=== PATIENT | female | born 1995 | race Caucasian/White ===

== ENCOUNTER 2017-10-10 11:57 | Emergency (ER) | payer OTHER ==
--- NOTE | 2017-10-10 13:16 | EDM.PDOC ---
ED HPI GENERAL MEDICAL PROBLEM - General Chief Complaint: Abdominal Pain Stated Complaint: NOT FEELING WELL Time Seen by Provider: 10/10/17 12:45 Source of Information: Reports: Patient History Limitations: Reports: No Limitations - History of Present Illness INITIAL COMMENTS - FREE TEXT/NARRATIVE: HISTORY AND PHYSICAL: History of present illness: [Patient comes to the emergency room complaining of right lower quadrant abdominal pain. Symptoms began around 8 PM last evening and have continued throughout today. She has not had any fever or chills. No nausea or vomiting with the abdominal pain. [place] the pain came on gradually and intensified throughout the night. She had difficulty sleeping due to the pain but admits to sleeping some. She woke up today and the pain is improved but still remains present. She has recently been well, no illness or infection. Denies fever and chills. Has not felt constipated and is not having loose stools. No vomiting. Admits to normally having a decreased appetite and has not had any changes with this. Had a bowel movement yesterday. No rectal pain or bleeding. No burning with urination or blood in her urine. Denies low back pain. No vaginal discharge. Abnormal Pap 6 months ago. Follows regularly with her PCP for this. No surgical history other than tonsillectomy as a young child. Denies hospitalizations. Has a history of depression and anxiety for which she takes Pristiq. Does not use contraception and is sexually active. Smokes cigarettes regularly. Occasional alcohol use. Denies drug use.] Review of systems: As per history of present illness and below otherwise all systems reviewed and negative. Past medical history: As per history of present illness and as reviewed below otherwise noncontributory. Surgical history: As per history of present illness and as reviewed below otherwise noncontributory. Social history: No reported history of drug or alcohol abuse. Family history: As per history of present illness and as reviewed below otherwise noncontributory. Physical exam: HEENT: Atraumatic, normocephalic. oral mucous membranes are pink and moist. no tonsillar swelling erythema or exudate. Neck is supple. No thyromegaly or lymphadenopathy. Lungs: Clear to auscultation, breath sounds equal bilaterally. Heart: S1S2, regular rate and rhythm. Abdomen: Bowel sounds are normoactive throughout. Her abdomen is thin and soft, nondistended. She is mildly tender with palpation over her right lower quadrant. No rebound. Suprapubic tenderness. No masses guarding or rebound. No CVA tenderness. Pelvis: Stable nontender. Genitourinary: Deferred. Rectal: Deferred. Extremities: Atraumatic, negative for cords or calf pain. No cyanosis. Neurovascular unremarkable. Neuro: Awake, alert, oriented. Motor and sensory unremarkable throughout. Exam nonfocal. Diagnostics: [CBC, CMP, urinalysis, urine , non-OB pelvic ultrasound] Impression: [abdominal pain, RLQ] Plan: [Discussed with patient that due to her lack of fever and normal white count, index of suspicion is low or appendicitis. Discussed symptoms to watch for and reasons to return to the ER. Pelvic ultrasound showed no abnormalities. Recommend Tylenol alternating with ibuprofen as needed for discomfort. Heating pads as needed. Offered Toradol which patient declines, stating she would like to go home. Strict return precautions are reviewed. Pt and mother are in agreement with today's discussion.] Definitive disposition and diagnosis as appropriate pending reevaluation and review of above. right lower quadrant pain Pain Score (Numeric/FACES): 6 - Related Data Allergies Allergy/AdvReac Type Severity Reaction Status Date / Time Penicillins Allergy Hives Verified 10/10/17 12:18 Home Meds: Home Meds Topiramate [Topamax] 50 mg PO BID 10/10/17 [History] Past Medical History Psychiatric History: Reports: Bipolar - Infectious Disease History Infectious Disease History: Reports: Chicken Pox Social & Family History - Family History Family Medical History: Noncontributory - Tobacco Use Smoking Status *Q: Current Every Day Smoker Years of Tobacco use: 10 Packs/Tins Daily: 0.5 - Recreational Drug Use Recreational Drug Use: Yes Drug Use in Last 12 Months: Yes Recreational Drug Type: Reports: Marijuana/Hashish Recreational Drug Use Frequency: Weekly ED ROS GENERAL - Review of Systems Review Of Systems: ROS reveals no pertinent complaints other than HPI. ED EXAM, GI/ABD - Physical Exam Exam: See Below Course - Vital Signs Last Recorded V/S: Last Vital Signs Temp 98.3 F 10/10/17 12:19 Pulse 84 10/10/17 12:19 Resp 18 10/10/17 12:19 BP 128/76 10/10/17 12:19 Pulse Ox 97 10/10/17 12:19 - Orders/Labs/Meds Orders: Active Orders 24 hr Category Date Time Status HCG QUALITATIVE,URINE [URCHEM] Stat Lab 10/10/17 12:50 Ordered UA W/MICROSCOPIC [URIN] Stat Lab 10/10/17 12:50 Ordered Labs: Laboratory Tests 10/10/17 10/10/17 10/10/17 Range/Units 12:50 12:50 12:56 WBC 6.96 (4.0-11.0) K/uL RBC 4.01 L (4.30-5.90) M/uL Hgb 13.0 (12.0-16.0) g/dL Hct 36.0 (36.0-46.0) % MCV 89.8 (80.0-98.0) fL MCH 32.4 H (27.0-32.0) pg MCHC 36.1 (31.0-37.0) g/dL RDW Std Deviation 41.3 (28.0-62.0) fl RDW Coeff of [place] 13 (11.0-15.0) % Plt Count 201 (150-400) K/uL MPV 10.60 (7.40-12.00) fL Neut % (Auto) 60.5 (48.0-80.0) % Lymph % (Auto) 31.3 (16.0-40.0) % [place] % (Auto) 8.2 (0.0-15.0) % Eos % (Auto) 0.0 (0.0-7.0) % Baso % (Auto) 0.0 (0.0-1.5) % Neut # (Auto) 4.2 (1.4-5.7) K/uL Lymph # (Auto) 2.2 (0.6-2.4) K/uL [place] # (Auto) 0.6 (0.0-0.8) K/uL Eos # (Auto) 0.0 (0.0-0.7) K/uL Baso # (Auto) 0.0 (0.0-0.1) K/uL Nucleated RBC % 0.0 /100WBC Nucleated RBCs # 0 K/uL Sodium (136-145) mmol/L Potassium (3.5-5.1) mmol/L Chloride (98-107) mmol/L Carbon Dioxide (21.0-32.0) mmol/L BUN (7.0-18.0) mg/dL Creatinine (0.6-1.0) mg/dL Est Cr Clr Drug Dosing mL/min Estimated GFR (MDRD) ml/min Glucose (74-106) mg/dL Calcium (8.5-10.1) mg/dL Total Bilirubin (0.2-1.0) mg/dL AST (15-37) IU/L ALT (14-63) IU/L Alkaline Phosphatase (46-116) U/L Total Protein (6.4-8.2) g/dL Albumin (3.4-5.0) g/dL Globulin (2.0-3.5) g/dL Albumin/Globulin Ratio (1.3-2.8) Urine Color YELLOW Urine Appearance CLEAR Urine pH 6.5 (5.0-8.0) Ur Specific [place] 1.010 (1.001-1.035) Urine Protein NEGATIVE (NEGATIVE) mg/dL Urine Glucose (UA) NEGATIVE (NEGATIVE) mg/dL Urine Ketones NEGATIVE (NEGATIVE) mg/dL Urine Occult Blood NEGATIVE (NEGATIVE) Urine Nitrite NEGATIVE (NEGATIVE) Urine Bilirubin NEGATIVE (NEGATIVE) Urine Urobilinogen 0.2 (<2.0) EU/dL Ur Leukocyte Esterase NEGATIVE (NEGATIVE) Urine RBC 0-1 (0-2/HPF) Urine WBC 0-1 (0-5/HPF) Ur Epithelial Cells RARE (NONE-FEW) Urine Bacteria RARE (NEGATIVE) Urine HCG, Qual NEGATIVE (NEGATIVE) 10/10/17 Range/Units 12:56 WBC (4.0-11.0) K/uL RBC (4.30-5.90) M/uL Hgb (12.0-16.0) g/dL Hct (36.0-46.0) % MCV (80.0-98.0) fL MCH (27.0-32.0) pg MCHC (31.0-37.0) g/dL RDW Std Deviation (28.0-62.0) fl RDW Coeff of [place] (11.0-15.0) % Plt Count (150-400) K/uL MPV (7.40-12.00) fL Neut % (Auto) (48.0-80.0) % Lymph % (Auto) (16.0-40.0) % [place] % (Auto) (0.0-15.0) % Eos % (Auto) (0.0-7.0) % Baso % (Auto) (0.0-1.5) % Neut # (Auto) (1.4-5.7) K/uL Lymph # (Auto) (0.6-2.4) K/uL [place] # (Auto) (0.0-0.8) K/uL Eos # (Auto) (0.0-0.7) K/uL Baso # (Auto) (0.0-0.1) K/uL Nucleated RBC % /100WBC Nucleated RBCs # K/uL Sodium 138 (136-145) mmol/L Potassium 3.3 L (3.5-5.1) mmol/L Chloride 105 (98-107) mmol/L Carbon Dioxide 22.1 (21.0-32.0) mmol/L BUN 12 (7.0-18.0) mg/dL Creatinine 1.0 (0.6-1.0) mg/dL Est Cr Clr Drug Dosing 66.59 mL/min Estimated GFR (MDRD) > 60.0 ml/min Glucose 87 (74-106) mg/dL Calcium 9.2 (8.5-10.1) mg/dL Total Bilirubin 0.7 (0.2-1.0) mg/dL AST 12 L (15-37) IU/L ALT 18 (14-63) IU/L Alkaline Phosphatase 69 (46-116) U/L Total Protein 7.2 (6.4-8.2) g/dL Albumin 4.1 (3.4-5.0) g/dL Globulin 3.1 (2.0-3.5) g/dL Albumin/Globulin Ratio 1.3 (1.3-2.8) Urine Color Urine Appearance Urine pH (5.0-8.0) Ur Specific [place] (1.001-1.035) Urine Protein (NEGATIVE) mg/dL Urine Glucose (UA) (NEGATIVE) mg/dL Urine Ketones (NEGATIVE) mg/dL Urine Occult Blood (NEGATIVE) Urine Nitrite (NEGATIVE) Urine Bilirubin (NEGATIVE) Urine Urobilinogen (<2.0) EU/dL Ur Leukocyte Esterase (NEGATIVE) Urine RBC (0-2/HPF) Urine WBC (0-5/HPF) Ur Epithelial Cells (NONE-FEW) Urine Bacteria (NEGATIVE) Urine HCG, Qual (NEGATIVE) Departure - Departure Time of Disposition: 15:10 Disposition: Home, Self-Care 01 Condition: Good Clinical Impression: Abdominal pain - Discharge Information Referrals: PCP,None [Primary Care Provider] - Forms: ED Department Discharge Additional Instructions: The following information is given to patients seen in the emergency department who are being discharged to home. This information is to outline your options for follow-up care. We provide all patients seen in our emergency department with a follow-up referral. The need for follow-up, as well as the timing and circumstances, are variable depending upon the specifics of your emergency department visit. If you don't have a primary care physician on staff, we will provide you with a referral. We always advise you to contact your personal physician following an emergency department visit to inform them of the circumstance of the visit and for follow-up with them and/or the need for any referrals to a consulting specialist. The emergency department will also refer you to a specialist when appropriate. This referral assures that you have the opportunity for follow-up care with a specialist. All of these measure are taken in an effort to provide you with optimal care, which includes your follow-up. Under all circumstances we always encourage you to contact your private physician who remains a resource for coordinating your care. When calling for follow-up care, please make the office aware that this follow-up is from your recent emergency room visit. If for any reason you are refused follow-up, please contact the [facility] emergency department at and asked to speak to the emergency department charge nurse. [facility] [address] [place] [id number] Follow-up with your local primary care provider at the clinic listed above in 48 -72 hours. Alternate Tylenol with ibuprofen as needed. Use heating pad as needed. Return to ER as needed as discussed. - My Orders Last 24 Hours: My Active Orders 10/10/17 12:50 HCG QUALITATIVE,URINE [URCHEM] Stat UA W/MICROSCOPIC [URIN] Stat - Assessment/Plan Last 24 Hours: My Active Orders 10/10/17 12:50 HCG QUALITATIVE,URINE [URCHEM] Stat UA W/MICROSCOPIC [URIN] Stat
[2017-10-10 13:46] LABS: CHLORIDE,CL 105 mmol/L (98-107); SODIUM,NA 138 mmol/L (136-145)
--- NOTE | 2017-10-10 14:55 | US ---
Pelvic/transvaginal sonogram Multiple images through the uterus and adnexa demonstrate that the uterus measures 6.3 x 2.7 x 3.4 cm . Ovaries are morphologically normal in size greatest dimension on the right at 3.45 cm and greatest dimension on the left at 3.12 cm. Small follicles are present bilaterally. There is no pelvic fluid c ollection or mass. The endometrial stripe within the uterus is normal. Impression: No significant pelvic abnormalities
== END 2017-10-10 15:30 | disposition home or self-care (01) ==
LOC: MW.ED 11:57
DX: R10.31 Right lower quadrant pain (principal); Z88.0 Allergy status to penicillin; F17.210 Nicotine dependence, cigarettes, uncomplicated
CPT/HCPCS: 36415; 76856; 76856-26; 80053; 81001; 81025; 85025; 99284-25

== ENCOUNTER 2018-07-09 16:41 | Emergency (ER) | payer OTHER, MEDICAID ==
[2018-07-09] MEDS ORDERED: Sodium Chloride 0.9% 1,000 ML IV ONE (16:57)
--- NOTE | 2018-07-09 16:57 | EDM.PDOC ---
ED HPI GENERAL MEDICAL PROBLEM - General Chief Complaint: Respiratory Problem Stated Complaint: CHEST PAIN Time Seen by Provider: 07/09/18 16:43 Source of Information: Reports: Patient History Limitations: Reports: No Limitations - History of Present Illness INITIAL COMMENTS - FREE TEXT/NARRATIVE: HISTORY AND PHYSICAL: History of present illness: Patient is a 22-year-old female who presents to the ED today for pleuritic chest pain (worse with deep breath) that started about one hour ago. She is approximately 33 weeks gestation in her . Patient states that 1 hour ago she started having a sharp pain in her chest that is worse if she takes a big deep breath. She rates her pain a 9 out of 10 with deep breath. She states that when this happened she called [facility] and spoke with the on-call doc (Dr. Jesse Traylor) who told her to come to the ED. Her primary physician is Dr. Stanley. Patient states she does feel as if her heart is racing. She states she has not been sick recently. She states and her pregnancies she has had on 2 separate occasions situations where she went into premature labor that stopped this medication on labor and delivery. Patient states she has felt movement since the symptoms. Patient denies any difference in swelling in her legs. Patient denies any headache, visual changes, shortness of breath, cough, nausea , vomiting, abdominal pain, vaginal bleeding, pelvic pain, vaginal discharge, nasal congestion, back pain, injury, or all other GI, , cardiovascular, or respiratory concerns. Patient does have a history of anxiety and depression but denies any other health history. Review of systems: As per history of present illness and below otherwise all systems reviewed and negative. Past medical history: As per history of present illness and as reviewed below otherwise noncontributory. Surgical history: As per history of present illness and as reviewed below otherwise noncontributory. Social history: See social history for further information Family history: As per history of present illness and as reviewed below otherwise noncontributory. Physical exam: General: Patient is alert, oriented, and in no acute distress. She is sitting comfortable on exam table. HEENT: Atraumatic, normocephalic, pupils equal and reactive bilaterally, negative for conjunctival pallor or scleral icterus, mucous membranes moist, TMs normal bilaterally, throat clear, neck supple, nontender, trachea midline. No drooling or trismus noted. No meningeal signs. No hot potato voice noted. Lungs: Clear to auscultation, breath sounds equal bilaterally, chest nontender. Patient notes pain when asked to take a deep breath in. Heart: S1S2, regular rate and rhythm without overt murmur Abdomen: Gravid, soft, nondistended, nontender. Negative for masses or hepatosplenomegaly. Negative for costovertebral tenderness. Pelvis: Stable nontender. Genitourinary: Deferred. Rectal: Deferred. Skin: Intact, warm, dry. No lesions or rashes noted. Extremities: Atraumatic, negative for cords or calf pain. Neurovascular unremarkable. Neuro: Awake, alert, oriented. Cranial nerves II through XII unremarkable. Cerebellum unremarkable. Motor and sensory unremarkable throughout. Exam nonfocal. Notes: OB was called to perform NST at bedside. Patient denies any vaginal bleeding, discharge or any OB-related concerns at this time. She is agreeable to IV fluid and lab work. Once labs have resulted and able to reevaluate the patient we will consider doing a CTA of the chest to rule out PE if needed. Although she is tachycardic she has not tachypneic. Lab work is unremarkable. After receiving a liter of IV fluids she continues to be tachycardic in the one teens. Dr. vizcarra who is [employer] on-call was consulted on this case and she is agreeable that this patient needs to be ruled out for PE. The risks versus benefits were explained to the patient, along with exposures to the fetus. Patient is agreeable to having this test performed to rule out PE. The optimal opacification of the pulmonary arteries. No large central pulmonary embolism is identified. Subcutaneous segmental branches of the pulmonary arteries cannot be adequately evaluated with this exam. There is a faint groundglass opacity in the right lower lobe which represents early or resolving infection. Patient did have an NST at bedside by AZALEA Jackson. Dr. vizcarra was involved and aware of the patient's case and recent vital signs. She is comfortable with the patient being discharged to home and having close follow-up within the remaining week with her [employer]. This information was shared with the patient. Supportive care measures were reviewed and discussed. Voices understanding and is agreeable to plan of care. Denies any further questions or concerns at this time. Diagnostics: CBC, CMP, UA, nonstress test, EKG, TSH, CTA Therapeutics: IV fluids, Tylenol, DuoNeb Prescription: None Impression: Pleuritic chest pain Third trimester Tachycardia Plan: 1. Please avoid any caffeine or stimulants that may increase her heart rate. Drink plenty of fluids. 2. Please call tomorrow morning to set up a follow-up appointment with your OB/ MEDICAL ASST. They would like to have you reevaluated before the end of the week. 3. Return to the ED as needed and as discussed. Definitive disposition and diagnosis as appropriate pending reevaluation and review of above. - Related Data Allergies Allergy/AdvReac Type Severity Reaction Status Date / Time Penicillins Allergy Hives Verified 07/09/18 17:00 Home Meds: Home Meds PNV #116/Iron Fumarate/FA/DHA [Expecta Combo Pack] 1 tab PO DAILY 06/06 [History] buPROPion [Wellbutrin SR] 150 mg PO DAILY 06/06/18 [History] Levothyroxine Sodium [Synthroid] 25 mcg PO DAILY 07/09/18 [History] Past Medical History Psychiatric History: Reports: Bipolar - Infectious Disease History Infectious Disease History: Reports: Chicken Pox Social & Family History - Family History Family Medical History: Noncontributory ED ROS GENERAL - Review of Systems Review Of Systems: ROS reveals no pertinent complaints other than HPI. ED EXAM, GENERAL - Physical Exam Exam: See Below (See dictation) Course - Vital Signs Last Recorded V/S: Last Vital Signs Temp 97.6 F 07/09/18 16:45 Pulse 99 07/09/18 18:40 Resp 18 07/09/18 18:40 BP 126/83 07/09/18 18:40 Pulse Ox 97 07/09/18 18:40 - Orders/Labs/Meds Orders: Active Orders 24 hr Category Date Time Status EKG Documentation Completion [RC] STAT Care 07/09/18 16:43 Active Non Stress Test [ Non Stress Test] [RC] PER UNIT Care 07/09/18 17:02 Active ROUTINE RT Aerosol Therapy [RC] ASDIRECTED Care 07/09/18 16:58 Active Labs: Laboratory Tests 07/09/18 07/09/18 07/09/18 Range/Units 17:28 17:28 17:28 WBC 10.89 (4.0-11.0) K/uL RBC 3.41 L (4.30-5.90) M/uL Hgb 11.5 L (12.0-16.0) g/dL Hct 32.6 L (36.0-46.0) % MCV 95.6 (80.0-98.0) fL MCH 33.7 H (27.0-32.0) pg MCHC 35.3 (31.0-37.0) g/dL RDW Std Deviation 47.8 (28.0-62.0) fl RDW Coeff of [place] 14 (11.0-15.0) % Plt Count 178 (150-400) K/uL MPV 10.60 (7.40-12.00) fL Neut % (Auto) 72.0 (48.0-80.0) % Lymph % (Auto) 17.9 (16.0-40.0) % [place] % (Auto) 7.3 (0.0-15.0) % Eos % (Auto) 2.6 (0.0-7.0) % Baso % (Auto) 0.2 (0.0-1.5) % Neut # (Auto) 7.8 H (1.4-5.7) K/uL Lymph # (Auto) 2.0 (0.6-2.4) K/uL [place] # (Auto) 0.8 (0.0-0.8) K/uL Eos # (Auto) 0.3 (0.0-0.7) K/uL Baso # (Auto) 0.0 (0.0-0.1) K/uL Nucleated RBC % 0.2 /100WBC Nucleated RBCs # 0 K/uL Sodium 137 (136-145) mmol/L Potassium 3.8 (3.5-5.1) mmol/L Chloride 104 (98-107) mmol/L Carbon Dioxide 21.1 (21.0-32.0) mmol/L BUN 6 L (7.0-18.0) mg/dL Creatinine 0.7 (0.6-1.0) mg/dL Est Cr Clr Drug Dosing 94.32 mL/min Estimated GFR (MDRD) > 60.0 ml/min Glucose 111 H (74-106) mg/dL Calcium 9.1 (8.5-10.1) mg/dL Total Bilirubin 0.3 (0.2-1.0) mg/dL AST 14 L (15-37) IU/L ALT 16 (14-63) IU/L Alkaline Phosphatase 117 H (46-116) U/L Total Protein 6.4 (6.4-8.2) g/dL Albumin 2.6 L (3.4-5.0) g/dL Globulin 3.8 (2.6-4.0) g/dL Albumin/Globulin Ratio 0.7 L (0.9-1.6) TSH 3rd Generation (0.36-3.74) uIU/mL Urine Color YELLOW Urine Appearance CLEAR Urine pH 7.0 (5.0-8.0) Ur Specific [place] <= 1.005 (1.001-1.035) Urine Protein NEGATIVE (NEGATIVE) mg/dL Urine Glucose (UA) NEGATIVE (NEGATIVE) mg/dL Urine Ketones NEGATIVE (NEGATIVE) mg/dL Urine Occult Blood NEGATIVE (NEGATIVE) Urine Nitrite NEGATIVE (NEGATIVE) Urine Bilirubin NEGATIVE (NEGATIVE) Urine Urobilinogen 0.2 (<2.0) EU/dL Ur Leukocyte Esterase NEGATIVE (NEGATIVE) 07/09/18 Range/Units 17:28 WBC (4.0-11.0) K/uL RBC (4.30-5.90) M/uL Hgb (12.0-16.0) g/dL Hct (36.0-46.0) % MCV (80.0-98.0) fL MCH (27.0-32.0) pg MCHC (31.0-37.0) g/dL RDW Std Deviation (28.0-62.0) fl RDW Coeff of [place] (11.0-15.0) % Plt Count (150-400) K/uL MPV (7.40-12.00) fL Neut % (Auto) (48.0-80.0) % Lymph % (Auto) (16.0-40.0) % [place] % (Auto) (0.0-15.0) % Eos % (Auto) (0.0-7.0) % Baso % (Auto) (0.0-1.5) % Neut # (Auto) (1.4-5.7) K/uL Lymph # (Auto) (0.6-2.4) K/uL [place] # (Auto) (0.0-0.8) K/uL Eos # (Auto) (0.0-0.7) K/uL Baso # (Auto) (0.0-0.1) K/uL Nucleated RBC % /100WBC Nucleated RBCs # K/uL Sodium (136-145) mmol/L Potassium (3.5-5.1) mmol/L Chloride (98-107) mmol/L Carbon Dioxide (21.0-32.0) mmol/L BUN (7.0-18.0) mg/dL Creatinine (0.6-1.0) mg/dL Est Cr Clr Drug Dosing mL/min Estimated GFR (MDRD) ml/min Glucose (74-106) mg/dL Calcium (8.5-10.1) mg/dL Total Bilirubin (0.2-1.0) mg/dL AST (15-37) IU/L ALT (14-63) IU/L Alkaline Phosphatase (46-116) U/L Total Protein (6.4-8.2) g/dL Albumin (3.4-5.0) g/dL Globulin (2.6-4.0) g/dL Albumin/Globulin Ratio (0.9-1.6) TSH 3rd Generation 2.31 (0.36-3.74) uIU/mL Urine Color Urine Appearance Urine pH (5.0-8.0) Ur Specific [place] (1.001-1.035) Urine Protein (NEGATIVE) mg/dL Urine Glucose (UA) (NEGATIVE) mg/dL Urine Ketones (NEGATIVE) mg/dL Urine Occult Blood (NEGATIVE) Urine Nitrite (NEGATIVE) Urine Bilirubin (NEGATIVE) Urine Urobilinogen (<2.0) EU/dL Ur Leukocyte Esterase (NEGATIVE) Meds: Medications Discontinued Medications Generic Name Dose Route Start Last Admin Trade Name Freq PRN Reason Stop Dose Admin Acetaminophen 650 mg 07/09/18 16:58 07/09/18 17:54 Tylenol PO 07/09/18 16:59 650 mg NOW ONE Administration Albuterol/Ipratropium 3 ml 07/09/18 16:58 07/09/18 17:19 Duoneb 3.0-0.5 Mg/3 Ml NEB 07/09/18 16:59 3 ml ONETIME ONE Administration Sodium Chloride 1,000 mls @ 999 mls/hr 07/09/18 16:57 07/09/18 17:26 Normal Saline IV 07/09/18 17:57 999 mls/hr STAT ONE Administration Iopamidol 50 ml 07/09/18 19:13 07/09/18 19:14 Isovue Multipack-370 (76%) IVPUSH 07/09/18 19:14 50 ml ONETIME STA Administration Departure - Departure Time of Disposition: 19:38 Disposition: Home, Self-Care 01 Clinical Impression: Pleuritic chest pain, Third trimester , Tachycardia - Discharge Information Referrals: Yanira Wong NP [Primary Care Provider] - Forms: ED Department Discharge Additional Instructions: The following information is given to patients seen in the emergency department who are being discharged to home. This information is to outline your options for follow-up care. We provide all patients seen in our emergency department with a follow-up referral. The need for follow-up, as well as the timing and circumstances, are variable depending upon the specifics of your emergency department visit. If you don't have a primary care physician on staff, we will provide you with a referral. We always advise you to contact your personal physician following an emergency department visit to inform them of the circumstance of the visit and for follow-up with them and/or the need for any referrals to a consulting specialist. The emergency department will also refer you to a specialist when appropriate. This referral assures that you have the opportunity for follow-up care with a specialist. All of these measure are taken in an effort to provide you with optimal care, which includes your follow-up. Under all circumstances we always encourage you to contact your private physician who remains a resource for coordinating your care. When calling for follow-up care, please make the office aware that this follow-up is from your recent emergency room visit. If for any reason you are refused follow-up, please contact the [facility] Emergency Department at and asked to speak to the emergency department charge nurse. [facility] [address] [place] [address] 1. Please avoid any caffeine or stimulants that may increase her heart rate. Drink plenty of fluids. 2. Please call tomorrow morning to set up a follow-up appointment with your OB/ MEDICAL ASST. They would like to have you reevaluated before the end of the week. 3. Return to the ED as needed and as discussed. - My Orders Last 24 Hours: My Active Orders 07/09/18 16:43 EKG Documentation Completion [RC] STAT 07/09/18 16:58 RT Aerosol Therapy [RC] ASDIRECTED 07/09/18 17:02 Non Stress Test [ Non Stress Test] [RC] PER UNIT ROUTINE - Assessment/Plan Last 24 Hours: My Active Orders 07/09/18 16:43 EKG Documentation Completion [RC] STAT 07/09/18 16:58 RT Aerosol Therapy [RC] ASDIRECTED 07/09/18 17:02 Non Stress Test [ Non Stress Test] [RC] PER UNIT ROUTINE
[2018-07-09] MEDS ORDERED: Acetaminophen 325 MG Tab PO ONE (16:58)
[2018-07-09] MEDS ORDERED: Albuterol/Ipratropium 3.0-0.5 MG/3 ML Neb Soln NEB ONE (16:58)
[2018-07-09 18:00] LABS: CHLORIDE,CL 104 mmol/L (98-107); SODIUM,NA 137 mmol/L (136-145)
[2018-07-09] MEDS ORDERED: Iopamidol 755 MG/ML 500 ML Multipack Bottle IVPUSH STA (19:13)
--- NOTE | 2018-07-09 19:30 | CT ---
INDICATION: Chest pain, tachycardia TECHNIQUE: CT chest pulmonary PE protocol acquired with 50 cc Isovue 370 IV contrast. COMPARISON: None FINDINGS: Cardiovascular structures: Suboptimal opacification of the pulmonary arteries. No large central pulmonary embolus identified. Subsegmental branches of the pulmonary arteries cannot be adequately evaluated with this exam. Heart size is normal. No sign of aneurysm or dissection in the thoracic aorta. Mediastinum and denys: No mass or adenopathy. Lungs: Faint ground-glass opacity in the right lower lobe, best seen on image [id number] series [id number]. Pleura and pericardium: No effusions. Chest wall and axilla: No mass or adenopathy. Upper abdomen: Unremarkable. Bones: No significant findings. IMPRESSION: Suboptimal opacification of the pulmonary arteries. No large central pulmonary embolus identified. Subsegmental branches of the pulmonary arteries cannot be adequately evaluated with this exam. Faint ground-glass opacity in the right lower lobe may represent early or resolving infection. Please note that all CT scans at this facility use dose modulation, iterative reconstruction, and/or weight-based dosing when appropriate to reduce radiation dose to as low as reasonably achievable. Dictated by Tisha Jones MD @ Jul 09 2018 7:22PM Signed by Dr. Tisha Jones @ Jul 09 2018 7:28PM
== END 2018-07-09 20:26 | disposition home or self-care (01) ==
LOC: MW.ED 16:41
DX: O99.89 Other specified diseases and conditions complicating pregnancy, childbirth and the puerperium (principal); R07.81 Pleurodynia; R00.0 Tachycardia, unspecified; Z88.0 Allergy status to penicillin; Z3A.33 33 weeks gestation of pregnancy
CPT/HCPCS: 36415; 59025; 71275; 80053; 81003; 84443; 85025; 93005; 94640; 96360; 99284; A9270; J7040; Q9967; 99283; J7620-GY

== ENCOUNTER 2018-08-11 21:11 | Inpatient (IN) | payer OTHER, MEDICAID ==
[2018-08-12 01:24] LABS: CHLORIDE,CL 105 mmol/L (98-107); SODIUM,NA 138 mmol/L (136-145)
[2018-08-12] MEDS ORDERED: Tranexamic Acid 1,000 MG in Sodium Chloride 0.9% 100 ML IV PRN (01:59)
[2018-08-12] MEDS ORDERED: Carboprost Tromethamine 250 MCG/1 ML Amp IM PRN (01:59)
[2018-08-12] MEDS ORDERED: Water For Irrigation,Sterile 1,000 ML Container IRR PRN (01:59)
[2018-08-12] MEDS ORDERED: Lidocaine 1% 50 ML MDV INJECT PRN (01:59)
[2018-08-12] MEDS ORDERED: Nalbuphine 10 MG/1 ML Vial IVPUSH PRN (01:59)
[2018-08-12] MEDS ORDERED: Sodium Chloride 0.9% 10 ML Syringe FLUSH PRN (01:59)
[2018-08-12] MEDS ORDERED: Ondansetron 4 MG/2 ML SDV IV PRN (01:59)
[2018-08-12] MEDS ORDERED: Terbutaline 1 MG/ML SDV SUBCUT PRN (01:59)
[2018-08-12] MEDS ORDERED: Misoprostol 25 MCG (1/4 of 100 MCG) Tab VAG PRN ×2 (01:59)
[2018-08-12] MEDS ORDERED: Misoprostol 200 MCG Tab PO PRN (01:59)
[2018-08-12] MEDS ORDERED: Sodium Chloride 0.9% 2.5 ML Syringe FLUSH PRN (01:59)
[2018-08-12] MEDS ORDERED: Methylergonovine 0.2 MG/1 ML Amp IM PRN (01:59)
[2018-08-12] MEDS ORDERED: Sodium Chloride 0.9% 10 ML SDV IV PRN (01:59)
[2018-08-12] MEDS ORDERED: Butorphanol 1 MG/ML SDV IVPUSH PRN (01:59)
[2018-08-12] MEDS ORDERED: Oxytocin/0.9 % Sodium Chloride 30 UNIT/500 ML BAG IV SCH ×2 (02:00)
[2018-08-12 09:03] LABS: CHLORIDE,CL 106 mmol/L (98-107); SODIUM,NA 139 mmol/L (136-145)
[2018-08-12] MEDS: Lactated Ringers 1,000 ML IV SCH ×2 (13:33→18:45)
[2018-08-12] MEDS ORDERED: fentaNYL 100 MCG/2 ML SDV ONE (16:20)
[2018-08-12] MEDS ORDERED: Lidocaine HCl/EPINEPHrine 5 ML IJ ONE (16:21)
[2018-08-12] MEDS ORDERED: Bupivacaine 0.25% 10 ML SDV ONE (16:21)
--- NOTE | 2018-08-12 16:41 | PCM.PREANE ---
Preanesthetic Assessment - Anesthesia/Transfusion/Family Hx Anesthesia History: No Prior Anesthesia Transfusion History: No Prior Transfusion(s) - Review of Systems General: No Symptoms Pulmonary: No Symptoms Cardiovascular: No Symptoms Gastrointestinal: No Symptoms Neurological: No Symptoms Other: Reports: None - Physical Assessment Vital Signs: Last Vital Signs Temp 36.6 C 08/12/18 13:55 Pulse Resp BP Pulse Ox Height: 1.55 m Weight: 92.533 kg Mental Status: Alert & Oriented x3 Airway Class: Mallampati = 2 Dentition: Reports: Normal Dentition ROM/Head Extension: Full Lungs: Clear to Auscultation, Normal Respiratory Effort Cardiovascular: Regular Rate, Regular Rhythm - Lab Values: Laboratory Last Values WBC 9.87 K/uL (4.0-11.0) 08/12/18 08:31 RBC 3.39 M/uL (4.30-5.90) L 08/12/18 08:31 Hgb 11.3 g/dL (12.0-16.0) L 08/12/18 08:31 Hct 32.8 % (36.0-46.0) L 08/12/18 08:31 MCV 96.8 fL (80.0-98.0) 08/12/18 08:31 MCH 33.3 pg (27.0-32.0) H 08/12/18 08:31 MCHC 34.5 g/dL (31.0-37.0) 08/12/18 08:31 RDW Std Deviation 48.7 fl (28.0-62.0) 08/12/18 08:31 RDW Coeff of Segundo 14 % (11.0-15.0) 08/12/18 08:31 Plt Count 133 K/uL (150-400) L 08/12/18 08:31 MPV 11.60 fL (7.40-12.00) 08/12/18 08:31 Neut % (Auto) 66.2 % (48.0-80.0) 08/12/18 08:31 Lymph % (Auto) 23.0 % (16.0-40.0) 08/12/18 08:31 [place] % (Auto) 9.1 % (0.0-15.0) 08/12/18 08:31 Eos % (Auto) 1.4 % (0.0-7.0) 08/12/18 08:31 Baso % (Auto) 0.3 % (0.0-1.5) 08/12/18 08:31 Neut # (Auto) 6.5 K/uL (1.4-5.7) H 08/12/18 08:31 Lymph # (Auto) 2.3 K/uL (0.6-2.4) 08/12/18 08:31 [place] # (Auto) 0.9 K/uL (0.0-0.8) H 08/12/18 08:31 Eos # (Auto) 0.1 K/uL (0.0-0.7) 08/12/18 08:31 Baso # (Auto) 0.0 K/uL (0.0-0.1) 08/12/18 08:31 Nucleated RBC % 0.0 /100WBC 08/12/18 08:31 Nucleated RBCs # 0 K/uL 08/12/18 08:31 Sodium 139 mmol/L (136-145) 08/12/18 08:31 Potassium 3.7 mmol/L (3.5-5.1) 08/12/18 08:31 Chloride 106 mmol/L (98-107) 08/12/18 08:31 Carbon Dioxide 20.8 mmol/L (21.0-32.0) L 08/12/18 08:31 BUN 8 mg/dL (7.0-18.0) 08/12/18 08:31 Creatinine 0.8 mg/dL (0.6-1.0) 08/12/18 08:31 Est Cr Clr Drug Dosing 82.53 mL/min 08/12/18 08:31 Estimated GFR (MDRD) > 60.0 ml/min 08/12/18 08:31 Glucose 81 mg/dL (74-106) 08/12/18 08:31 Uric Acid 4.7 mg/dL (2.6-7.2) 08/12/18 00:31 Calcium 9.3 mg/dL (8.5-10.1) 08/12/18 08:31 Total Bilirubin 0.5 mg/dL (0.2-1.0) 08/12/18 08:31 AST 19 IU/L (15-37) 08/12/18 08:31 ALT 18 IU/L (14-63) 08/12/18 08:31 Alkaline Phosphatase 135 U/L (46-116) H 08/12/18 08:31 Lactate Dehydrogenase 193 U/L (81-234) 08/12/18 08:31 Total Protein 6.0 g/dL (6.4-8.2) L 08/12/18 08:31 Albumin 2.4 g/dL (3.4-5.0) L 08/12/18 08:31 Globulin 3.6 g/dL (2.6-4.0) 08/12/18 08:31 Albumin/Globulin Ratio 0.7 (0.9-1.6) L 08/12/18 08:31 Urine Color YELLOW 08/12/18 00:15 Urine Appearance CLEAR 08/12/18 00:15 Urine pH 6.5 (5.0-8.0) 08/12/18 00:15 Ur Specific [place] 1.010 (1.001-1.035) 08/12/18 00:15 Urine Protein NEGATIVE mg/dL (NEGATIVE) 08/12/18 00:15 Urine Glucose (UA) NEGATIVE mg/dL (NEGATIVE) 08/12/18 00:15 Urine Ketones NEGATIVE mg/dL (NEGATIVE) 08/12/18 00:15 Urine Occult Blood NEGATIVE (NEGATIVE) 08/12/18 00:15 Urine Nitrite NEGATIVE (NEGATIVE) 08/12/18 00:15 Urine Bilirubin NEGATIVE (NEGATIVE) 08/12/18 00:15 Urine Urobilinogen 0.2 EU/dL (<2.0) 08/12/18 00:15 Ur Leukocyte Esterase NEGATIVE (NEGATIVE) 08/12/18 00:15 Blood Type A POSITIVE 08/12/18 00:31 Antibody Screen NEGATIVE 08/12/18 00:31 - Allergies Allergies/Adverse Reactions: Allergies Allergy/AdvReac Type Severity Reaction Status Date / Time Penicillins Allergy Hives Verified 07/09/18 17:00 - Acknowledgements Anesthesia Type Planned: Epidural Pt an Appropriate Candidate for the Planned Anesthesia: Yes Alternatives and Risks of Anesthesia Discussed w Pt/Guardian: Yes Pt/Guardian Understands and Agrees with Anesthesia Plan: Yes PreAnesthesia Questionnaire Cardiovascular History: Reports: None Respiratory History: Reports: None Gastrointestinal History: Reports: None Genitourinary History: Reports: None [employer]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: Musculoskeletal History: Reports: None Neurological History: Reports: None Psychiatric History: Reports: Bipolar, Depression Endocrine/Metabolic History: Reports: Hypothyroidism Hematologic History: Reports: None Immunologic History: Reports: None Oncologic (Cancer) History: Reports: None Dermatologic History: Reports: None - Infectious Disease History Infectious Disease History: Reports: Chicken Pox - Past Surgical History Head Surgeries/Procedures: Reports: None HEENT Surgical History: Reports: Adenoidectomy, Tonsillectomy - SUBSTANCE USE Smoking Status *Q: Current Every Day Smoker Tobacco Use Within Last Twelve Months: Cigarettes Second Hand Smoke Exposure: Yes Recreational Drug Use History: No - HOME MEDS Home Medications: Home Meds PNV #116/Iron Fumarate/FA/DHA [Expecta Combo Pack] 1 tab PO DAILY 06/06 [History] buPROPion [Wellbutrin SR] 150 mg PO DAILY 06/06/18 [History] Levothyroxine Sodium [Synthroid] 25 mcg PO DAILY 07/09/18 [History] - CURRENT (IN HOUSE) MEDS Current Meds: Current Medications Butorphanol Tartrate (Stadol) 1 mg IVPUSH Q1H PRN PRN Reason: Pain Carboprost Tromethamine (Hemabate Ds) 250 mcg IM ASDIRECTED PRN PRN Reason: Post Hemorrhage Tranexamic Acid 1,000 mg/ (Sodium Chloride) 110 mls @ 660 mls/hr IV ONETIME PRN PRN Reason: Bleeding Oxytocin/Sodium Chloride (Oxytocin 30 Unit/500 Ml-Ns) 30 unit in 500 mls @ 2 mls/hr IV TITRATE ZURI; Protocol Last Titration: 08/12/18 15:23 Dose: 10 munits/min, 10 mls/hr Lactated Ringer's (Ringers, Lactated) 1,000 mls @ 150 mls/hr IV ASDIRECTED ZURI Last Admin: 08/12/18 13:33 Dose: 150 mls/hr Oxytocin/Sodium Chloride (Oxytocin 30 Unit/500 Ml-Ns) 30 unit in 500 mls @ 999 mls/hr IV TITRATE ZURI Lidocaine HCl (Xylocaine 1%) 50 ml INJECT ONETIME PRN PRN Reason: Laceration repair Methylergonovine Maleate (Methergine) 0.2 mg IM ASDIRECTED PRN PRN Reason: Post Hemorrhage Misoprostol (Cytotec) 25 mcg VAG ONETIME PRN PRN Reason: Cervical Ripening Last Admin: 08/12/18 03:17 Dose: 25 mcg Misoprostol (Cytotec) 25 mcg VAG Q4H PRN PRN Reason: Cervical Ripening Last Admin: 08/12/18 08:57 Dose: 25 mcg Misoprostol (Cytotec) 200 mcg PO ONETIME PRN PRN Reason: Post Hemorrhage Nalbuphine HCl (Nubain) 10 mg IVPUSH Q1H PRN PRN Reason: Pain (severe 7-10) Ondansetron HCl (Zofran) 4 mg IV Q6H PRN PRN Reason: Nausea/Vomiting Sodium Chloride (Saline Flush) 10 ml FLUSH ASDIRECTED PRN PRN Reason: Keep Vein Open Sodium Chloride (Saline Flush) 2.5 ml FLUSH ASDIRECTED PRN PRN Reason: Keep Vein Open Sodium Chloride (Normal Saline) 10 ml IV ASDIRECTED PRN PRN Reason: IV Use Sterile Water (Sterile Water For Irrigation) 1,000 ml IRR ASDIRECTED PRN PRN Reason: delivery Terbutaline Sulfate (Brethine) 0.25 mg SUBCUT ASDIRECTED PRN PRN Reason: Tacysystole Discontinued Medications Bupivacaine HCl (Sensorcaine-Mpf 0.25%) Confirm Administered Dose 10 ml .ROUTE .STK-MED ONE Stop: 08/12/18 16:22 Fentanyl (Sublimaze) Confirm Administered Dose 100 mcg .ROUTE .STK-MED ONE Stop: 08/12/18 16:21 Fentanyl/Bupivacaine HCl (Kcewyglq-Gkwep-Sl 2 Mcg/Ml-0.125%) Confirm Administered Dose 100 mls @ as directed .ROUTE .STK-MED ONE Stop: 08/12/18 16:21 Lidocaine/Epinephrine (Lidocaine 1.5%-Epi 1:200,000) Confirm Administered Dose 5 ml IJ .STK-MED ONE Stop: 08/12/18 16:22
[2018-08-12] MEDS ORDERED: Bisacodyl 10 MG Supp RECTAL PRN (23:49)
[2018-08-12] MEDS ORDERED: Lanolin 100% Cream 7 GM Tube TOP PRN (23:49)
[2018-08-12] MEDS ORDERED: Docusate Sodium 100 MG Cap PO PRN (23:49)
[2018-08-12] MEDS ORDERED: Acetaminophen 500 MG Tab PO PRN ×2 (23:49)
[2018-08-12] MEDS ORDERED: Witch Hazel Medicated Pads 40/Jar TOP PRN (23:49)
[2018-08-12] MEDS ORDERED: Ibuprofen 400 MG Tab PO PRN (23:49)
--- NOTE | 2018-08-13 00:36 | PCM48HPAN ---
Post Anesthesia Note - EVALUATION WITHIN 48HRS OF ANESTHETIC Vital Signs in Normal Range: Yes Patient Participated in Evaluation: Yes Respiratory Function Stable: Yes Airway Patent: Yes Cardiovascular Function Stable: Yes Hydration Status Stable: Yes Pain Control Satisfactory: Yes Nausea and Vomiting Control Satisfactory: Yes Mental Status Recovered: Yes
[2018-08-13] MEDS: Ibuprofen 800 MG Tab PO PRN ×2 (08:21→15:11)
--- NOTE | 2018-08-13 08:24 | PCM.PNPP ---
- General Info Date of Service: 08/13/18 Functional Status: Reports: Pain Controlled, Tolerating Diet, Ambulating, Urinating - Review of Systems General: Denies: Fever, Weakness, Fatigue Pulmonary: Denies: Shortness of Breath, Pleuritic Chest Pain, Cough Cardiovascular: Denies: Chest Pain, Palpitations, Dyspnea on Exertion Gastrointestinal: Denies: Abdominal Pain Genitourinary: Denies: Dysuria - General Info Date of Service: 08/13/18 - Patient Data Vital Signs - Most Recent: Last Vital Signs Temp 36.4 C 08/13/18 04:10 Pulse 90 08/13/18 04:10 Resp 17 08/13/18 04:10 BP 132/86 08/13/18 04:10 Pulse Ox 98 08/13/18 04:10 Weight - Most Recent: 92.533 kg Lab Results - Last 24 Hours: Laboratory Results - last 24 hr 08/12/18 08/12/18 08/13/18 Range/Units 08:31 08:31 05:57 WBC 9.87 (4.0-11.0) K/uL RBC 3.39 L (4.30-5.90) M/uL Hgb 11.3 L 11.1 L (12.0-16.0) g/dL Hct 32.8 L 32.6 L (36.0-46.0) % MCV 96.8 (80.0-98.0) fL MCH 33.3 H (27.0-32.0) pg MCHC 34.5 (31.0-37.0) g/dL RDW Std Deviation 48.7 (28.0-62.0) fl RDW Coeff of Segundo 14 (11.0-15.0) % Plt Count 133 L (150-400) K/uL MPV 11.60 (7.40-12.00) fL Neut % (Auto) 66.2 (48.0-80.0) % Lymph % (Auto) 23.0 (16.0-40.0) % Edmunds % (Auto) 9.1 (0.0-15.0) % Eos % (Auto) 1.4 (0.0-7.0) % Baso % (Auto) 0.3 (0.0-1.5) % Neut # (Auto) 6.5 H (1.4-5.7) K/uL Lymph # (Auto) 2.3 (0.6-2.4) K/uL Edmunds # (Auto) 0.9 H (0.0-0.8) K/uL Eos # (Auto) 0.1 (0.0-0.7) K/uL Baso # (Auto) 0.0 (0.0-0.1) K/uL Nucleated RBC % 0.0 /100WBC Nucleated RBCs # 0 K/uL Sodium 139 (136-145) mmol/L Potassium 3.7 (3.5-5.1) mmol/L Chloride 106 (98-107) mmol/L Carbon Dioxide 20.8 L (21.0-32.0) mmol/L BUN 8 (7.0-18.0) mg/dL Creatinine 0.8 (0.6-1.0) mg/dL Est Cr Clr Drug Dosing 82.53 mL/min Estimated GFR (MDRD) > 60.0 ml/min Glucose 81 (74-106) mg/dL Calcium 9.3 (8.5-10.1) mg/dL Total Bilirubin 0.5 (0.2-1.0) mg/dL AST 19 (15-37) IU/L ALT 18 (14-63) IU/L Alkaline Phosphatase 135 H (46-116) U/L Lactate Dehydrogenase 193 (81-234) U/L Total Protein 6.0 L (6.4-8.2) g/dL Albumin 2.4 L (3.4-5.0) g/dL Globulin 3.6 (2.6-4.0) g/dL Albumin/Globulin Ratio 0.7 L (0.9-1.6) Med Orders - Current: Current Medications Acetaminophen (Tylenol Extra Strength) 500 mg PO Q4H PRN PRN Reason: Pain Acetaminophen (Tylenol Extra Strength) 1,000 mg PO Q4H PRN PRN Reason: Pain Benzocaine/Menthol (Dermoplast Pain Relief 20%-0.5% [place]) 78 gm TOP ASDIRECTED PRN PRN Reason: Perineal Comfort Measure Bisacodyl (Dulcolax) 10 mg RECTAL ONETIME PRN PRN Reason: Constipation Butorphanol Tartrate (Stadol) 1 mg IVPUSH Q1H PRN PRN Reason: Pain Carboprost Tromethamine (Hemabate Ds) 250 mcg IM ASDIRECTED PRN PRN Reason: Post Hemorrhage Docusate Sodium (Colace) 100 mg PO BID PRN PRN Reason: Constipation Emollient Ointment (Lansinoh Hpa) 0 gm TOP ASDIRECTED PRN PRN Reason: Sore Nipples Tranexamic Acid 1,000 mg/ (Sodium Chloride) 110 mls @ 660 mls/hr IV ONETIME PRN PRN Reason: Bleeding Oxytocin/Sodium Chloride (Oxytocin 30 Unit/500 Ml-Ns) 30 unit in 500 mls @ 2 mls/hr IV TITRATE ZURI; Protocol Last Titration: 08/12/18 19:00 Dose: 16 munits/min, 16 mls/hr Lactated Ringer's (Ringers, Lactated) 1,000 mls @ 150 mls/hr IV ASDIRECTED ZURI Last Admin: 08/12/18 18:45 Dose: 150 mls/hr Oxytocin/Sodium Chloride (Oxytocin 30 Unit/500 Ml-Ns) 30 unit in 500 mls @ 999 mls/hr IV TITRATE ZURI Ibuprofen (Motrin) 400 mg PO Q4H PRN PRN Reason: Pain Ibuprofen (Motrin) 800 mg PO Q6H PRN PRN Reason: Pain Lidocaine HCl (Xylocaine 1%) 50 ml INJECT ONETIME PRN PRN Reason: Laceration repair Methylergonovine Maleate (Methergine) 0.2 mg IM ASDIRECTED PRN PRN Reason: Post Hemorrhage Misoprostol (Cytotec) 25 mcg VAG ONETIME PRN PRN Reason: Cervical Ripening Last Admin: 08/12/18 03:17 Dose: 25 mcg Misoprostol (Cytotec) 25 mcg VAG Q4H PRN PRN Reason: Cervical Ripening Last Admin: 08/12/18 08:57 Dose: 25 mcg Misoprostol (Cytotec) 200 mcg PO ONETIME PRN PRN Reason: Post Hemorrhage Nalbuphine HCl (Nubain) 10 mg IVPUSH Q1H PRN PRN Reason: Pain (severe 7-10) Ondansetron HCl (Zofran) 4 mg IV Q6H PRN PRN Reason: Nausea/Vomiting Sodium Chloride (Saline Flush) 10 ml FLUSH ASDIRECTED PRN PRN Reason: Keep Vein Open Sodium Chloride (Saline Flush) 2.5 ml FLUSH ASDIRECTED PRN PRN Reason: Keep Vein Open Sodium Chloride (Normal Saline) 10 ml IV ASDIRECTED PRN PRN Reason: IV Use Sterile Water (Sterile Water For Irrigation) 1,000 ml IRR ASDIRECTED PRN PRN Reason: delivery Terbutaline Sulfate (Brethine) 0.25 mg SUBCUT ASDIRECTED PRN PRN Reason: Tacysystole Witch Malgorzata (Tucks) 1 pad TOP ASDIRECTED PRN PRN Reason: comfort care Discontinued Medications Bupivacaine HCl (Sensorcaine-Mpf 0.25%) Confirm Administered Dose 10 ml .ROUTE .STK-MED ONE Stop: 08/12/18 16:22 Last Admin: 08/12/18 17:14 Dose: Not Given Fentanyl (Sublimaze) Confirm Administered Dose 100 mcg .ROUTE .STK-MED ONE Stop: 08/12/18 16:21 Last Admin: 08/12/18 17:14 Dose: Not Given Fentanyl/Bupivacaine HCl (Kciglxzk-Kwjqc-Fn 2 Mcg/Ml-0.125%) Confirm Administered Dose 100 mls @ as directed .ROUTE .STK-MED ONE Stop: 08/12/18 16:21 Last Admin: 08/12/18 17:14 Dose: Not Given Lidocaine/Epinephrine (Lidocaine 1.5%-Epi 1:200,000) Confirm Administered Dose 5 ml IJ .STK-MED ONE Stop: 08/12/18 16:22 Last Admin: 08/12/18 17:14 Dose: Not Given - Interaction Disposition, : [place] in Room with Family Infant Feeding: Attempted ; Nursed Fair/Poor, Encouraged to Breastfeed Support Person: Mother - Recovery Exam Fundal Tone: Firm Fundal Level: 1 Fingerbreadths Below Umbilicus Fundal Placement: Midline Lochia Amount: Scant Lochia Color: Rubra/Red Episiotomy/Laceration: Approximated - Exam Neck: Supple Lungs: Clear to Auscultation, Normal Respiratory Effort Cardiovascular: Regular Rate, Regular Rhythm GI/Abdominal Exam: Normal Bowel Sounds, Soft, Non-Tender, No Distention Extremities: Normal Inspection, Non-Tender, Normal Capillary Refill, Pedal Edema (trace) Skin: Warm, Dry, Intact - Problem List & Annotations (1) Vaginal delivery SNOMED Code(s): 263026683 Code(s): O80 - ENCOUNTER FOR FULL-TERM UNCOMPLICATED DELIVERY Status: Acute Current Visit: Yes - Problem List Review Problem List Initiated/Reviewed/Updated: Yes - Assessment Assessment:: PPD #1 s/p for IOL for gestation hypertension. BP normalizing. Denies GRAJEDA, vision changes or mid-epigastric pain. Minimal pain. Moderate bleeding this am, fundus firm, midline after voiding. - Plan Plan:: Continue routine post cares. Patient can shower, ambulate halls today. Anticipate discharge home tomorrow.
[2018-08-13] MEDS: Benzocaine/Menthol 20%-0.5% Spray 78 GM Cannister TOP PRN (15:11)
[2018-08-14] MEDS: Ibuprofen 800 MG Tab PO PRN ×2 (00:57→09:00)
--- NOTE | 2018-08-14 07:01 | PCM.PNPP ---
- General Info Date of Service: 08/14/18 Functional Status: Reports: Pain Controlled, Tolerating Diet, Ambulating, Urinating - Review of Systems General: Reports: Fatigue. Denies: Fever, Weakness Pulmonary: Denies: Shortness of Breath Cardiovascular: Denies: Chest Pain, Palpitations, Lightheadedness Gastrointestinal: Denies: Abdominal Pain, Nausea, Vomiting Genitourinary: Denies: Flank Pain Skin: Reports: No Symptoms Neurological: Denies: Confusion, Dizziness, Headache Psychiatric: Reports: Agitation (tired and feeling irritable) - General Info Date of Service: 08/14/18 - Patient Data Vital Signs - Most Recent: Last Vital Signs Temp 36.3 C 08/14/18 04:42 Pulse 84 08/14/18 04:42 Resp 16 08/14/18 04:42 BP 116/70 08/14/18 04:42 Pulse Ox 95 08/14/18 04:42 Weight - Most Recent: 92.533 kg Lab Results - Last 24 Hours: Laboratory Results - last 24 hr 08/14/18 Range/Units 05:10 WBC 9.42 (4.0-11.0) K/uL RBC 3.15 L (4.30-5.90) M/uL Hgb 10.3 L (12.0-16.0) g/dL Hct 31.0 L (36.0-46.0) % MCV 98.4 H (80.0-98.0) fL MCH 32.7 H (27.0-32.0) pg MCHC 33.2 (31.0-37.0) g/dL RDW Std Deviation 49.2 (28.0-62.0) fl RDW Coeff of Segundo 14 (11.0-15.0) % Plt Count 132 L (150-400) K/uL MPV 11.40 (7.40-12.00) fL Nucleated RBC % 0.0 /100WBC Nucleated RBCs # 0 K/uL Med Orders - Current: Current Medications Acetaminophen (Tylenol Extra Strength) 500 mg PO Q4H PRN PRN Reason: Pain Acetaminophen (Tylenol Extra Strength) 1,000 mg PO Q4H PRN PRN Reason: Pain Last Admin: 08/13/18 17:58 Dose: 1,000 mg Benzocaine/Menthol (Dermoplast Pain Relief 20%-0.5% Edgar) 78 gm TOP ASDIRECTED PRN PRN Reason: Perineal Comfort Measure Last Admin: 08/13/18 15:11 Dose: 1 can Bisacodyl (Dulcolax) 10 mg RECTAL ONETIME PRN PRN Reason: Constipation Butorphanol Tartrate (Stadol) 1 mg IVPUSH Q1H PRN PRN Reason: Pain Carboprost Tromethamine (Hemabate Ds) 250 mcg IM ASDIRECTED PRN PRN Reason: Post Hemorrhage Docusate Sodium (Colace) 100 mg PO BID PRN PRN Reason: Constipation Emollient Ointment (Lansinoh Hpa) 0 gm TOP ASDIRECTED PRN PRN Reason: Sore Nipples Tranexamic Acid 1,000 mg/ (Sodium Chloride) 110 mls @ 660 mls/hr IV ONETIME PRN PRN Reason: Bleeding Oxytocin/Sodium Chloride (Oxytocin 30 Unit/500 Ml-Ns) 30 unit in 500 mls @ 2 mls/hr IV TITRATE ZURI; Protocol Last Titration: 08/12/18 19:00 Dose: 16 munits/min, 16 mls/hr Lactated Ringer's (Ringers, Lactated) 1,000 mls @ 150 mls/hr IV ASDIRECTED ZURI Last Admin: 08/12/18 18:45 Dose: 150 mls/hr Oxytocin/Sodium Chloride (Oxytocin 30 Unit/500 Ml-Ns) 30 unit in 500 mls @ 999 mls/hr IV TITRATE ZURI Ibuprofen (Motrin) 400 mg PO Q4H PRN PRN Reason: Pain Ibuprofen (Motrin) 800 mg PO Q6H PRN PRN Reason: Pain Last Admin: 08/14/18 00:57 Dose: 800 mg Lidocaine HCl (Xylocaine 1%) 50 ml INJECT ONETIME PRN PRN Reason: Laceration repair Methylergonovine Maleate (Methergine) 0.2 mg IM ASDIRECTED PRN PRN Reason: Post Hemorrhage Misoprostol (Cytotec) 25 mcg VAG ONETIME PRN PRN Reason: Cervical Ripening Last Admin: 08/12/18 03:17 Dose: 25 mcg Misoprostol (Cytotec) 25 mcg VAG Q4H PRN PRN Reason: Cervical Ripening Last Admin: 08/12/18 08:57 Dose: 25 mcg Misoprostol (Cytotec) 200 mcg PO ONETIME PRN PRN Reason: Post Hemorrhage Nalbuphine HCl (Nubain) 10 mg IVPUSH Q1H PRN PRN Reason: Pain (severe 7-10) Ondansetron HCl (Zofran) 4 mg IV Q6H PRN PRN Reason: Nausea/Vomiting Sodium Chloride (Saline Flush) 10 ml FLUSH ASDIRECTED PRN PRN Reason: Keep Vein Open Sodium Chloride (Saline Flush) 2.5 ml FLUSH ASDIRECTED PRN PRN Reason: Keep Vein Open Sodium Chloride (Normal Saline) 10 ml IV ASDIRECTED PRN PRN Reason: IV Use Sterile Water (Sterile Water For Irrigation) 1,000 ml IRR ASDIRECTED PRN PRN Reason: delivery Terbutaline Sulfate (Brethine) 0.25 mg SUBCUT ASDIRECTED PRN PRN Reason: Tacysystole Witch Malgorzata (Tucks) 1 pad TOP ASDIRECTED PRN PRN Reason: comfort care Last Admin: 08/13/18 15:10 Dose: 1 tub Discontinued Medications Bupivacaine HCl (Sensorcaine-Mpf 0.25%) Confirm Administered Dose 10 ml .ROUTE .STK-MED ONE Stop: 08/12/18 16:22 Last Admin: 08/12/18 17:14 Dose: Not Given Fentanyl (Sublimaze) Confirm Administered Dose 100 mcg .ROUTE .STK-MED ONE Stop: 08/12/18 16:21 Last Admin: 08/12/18 17:14 Dose: Not Given Fentanyl/Bupivacaine HCl (Rupxcqhd-Qtdgc-Pc 2 Mcg/Ml-0.125%) Confirm Administered Dose 100 mls @ as directed .ROUTE .STK-MED ONE Stop: 08/12/18 16:21 Last Admin: 08/12/18 17:14 Dose: Not Given Lidocaine/Epinephrine (Lidocaine 1.5%-Epi 1:200,000) Confirm Administered Dose 5 ml IJ .STK-MED ONE Stop: 08/12/18 16:22 Last Admin: 08/12/18 17:14 Dose: Not Given - Infant Interaction Disposition, : in Room with Family Infant Feeding: Attempted ; Nursed Fair/Poor, Encouraged to Breastfeed Support Person: Mother - Recovery Exam Fundal Tone: Firm Fundal Level: 1 Fingerbreadths Below Umbilicus Fundal Placement: Midline Lochia Amount: Scant Lochia Color: Rubra/Red Perineum Description: Intact, Minimal Bruising/Swelling Other Perinuem Description: 2nd degree MLL Episiotomy/Laceration: None Bladder Status: Nonpalpable, Voiding - Exam General: Alert, Oriented Lungs: Normal Respiratory Effort Cardiovascular: Regular Rate, Regular Rhythm GI/Abdominal Exam: Normal Bowel Sounds, Soft Extremities: Pedal Edema (trace). No: Robbin's Sign Skin: Warm, Dry, Intact Neurological: No New Focal Deficit Psy/Mental Status: Alert, Agitated - Problem List & Annotations (1) Vaginal delivery SNOMED Code(s): 638874954 Code(s): O80 - ENCOUNTER FOR FULL-TERM UNCOMPLICATED DELIVERY Status: Acute Current Visit: Yes - Problem List Review Problem List Initiated/Reviewed/Updated: Yes - My Orders Last 24 Hours: My Active Orders 08/14/18 06:57 Ready for Discharge [RC] PER UNIT ROUTINE - Assessment Assessment:: PPD #2 s/p for IOL for gestation hypertension. - Plan Plan:: Blood pressures remain normal range, Denies GRAJEDA or visual changes. CBC is stable. Allow discharge to home today with follow up at [facility] in one week for a BP check and 6 weeks . Infection and bleeding warnings reviewed. Will resume wellbutrin and increase dose to 300 mg daily. Discharge instructions reviewed. Discharge to home today.
[2018-08-14] MEDS: Benzocaine/Menthol 20%-0.5% Spray 78 GM Cannister TOP PRN (12:41)
== END 2018-08-14 13:20 | disposition home or self-care (01) | DRG 807 ==
LOC: MW.OBCHECK 21:11 → MW.OB 21:17 → MW.OBCHECK 08-12 02:00 → OBSVTOIN 08-12 23:08 → MW.OB 08-13 02:10
PROVIDERS: ADMIT Obstetrics & Gynecology; ATTEND Obstetrics & Gynecology
PROC: 10H07YZ Insertion of Other Device into Products of Conception, Via Natural or Artificial Opening (ICD-10-PCS; principal; 2018-08-12)
PROC: 0KQM0ZZ Repair Perineum Muscle, Open Approach (ICD-10-PCS; principal; 2018-08-12)
PROC: 3E0P7VZ Introduction of Hormone into Female Reproductive, Via Natural or Artificial Opening (ICD-10-PCS; principal; 2018-08-12)
PROC: 3E033VJ Introduction of Other Hormone into Peripheral Vein, Percutaneous Approach (ICD-10-PCS; principal; 2018-08-12)
PROC: 10907ZC Drainage of Amniotic Fluid, Therapeutic from Products of Conception, Via Natural or Artificial Opening (ICD-10-PCS; principal; 2018-08-12)
PROC: 10E0XZZ Delivery of Products of Conception, External Approach (ICD-10-PCS; principal; 2018-08-12)
PROC: 00HU33Z Insertion of Infusion Device into Spinal Canal, Percutaneous Approach (ICD-10-PCS; 2018-08-12)
PROC: 3E0R3BZ Introduction of Anesthetic Agent into Spinal Canal, Percutaneous Approach (ICD-10-PCS; 2018-08-12)
DX: O13.4 Gestational [pregnancy-induced] hypertension without significant proteinuria, complicating childbirth (principal); Z37.0 Single live birth; Z3A.37 37 weeks gestation of pregnancy; O99.334 Smoking (tobacco) complicating childbirth; F17.210 Nicotine dependence, cigarettes, uncomplicated; O99.344 Other mental disorders complicating childbirth; F32.9 Major depressive disorder, single episode, unspecified; F60.3 Borderline personality disorder; O70.1 Second degree perineal laceration during delivery; O99.284 Endocrine, nutritional and metabolic diseases complicating childbirth; E03.9 Hypothyroidism, unspecified; Z79.899 Other long term (current) drug therapy
CPT/HCPCS: 36415; 51702; 59025; 59409; 80053; 81003; 83615; 84550; 85014; 85018; 85025; 85027; 86850; 86900; 86901; A9270-GY; J2590; J7120

== ENCOUNTER 2022-12-31 23:42 | Emergency (ER) | payer BC, MEDICAID ==
[2023-01-01] MEDS ORDERED: Sodium Chloride 0.9% 10 ML Syringe FLUSH PRN (00:05)
[2023-01-01] MEDS ORDERED: Sodium Chloride 0.9% 1,000 ML IV ONE (00:05)
[2023-01-01] MEDS ORDERED: Sodium Chloride 0.9% 2.5 ML Syringe FLUSH PRN (00:05)
[2023-01-01 00:11] LABS: BASOPHILS PERCENT AUTO 0.6 % (0.0-1.5); EOSINOPHILS ABSOLUTE AUTO 0.5 K/uL (0.0-0.7); EOSINOPHILS PERCENT AUTO 7.6 % (0.0-7.0); HEMATOCRIT 36.6 % (36.0-46.0); HEMOGLOBIN 12.7 g/dL (12.0-16.0); LYMPHOCYTES PERCENT AUTO 32.6 % (16.0-40.0); MEAN CORPUSCULAR HEMOGLOBIN 31.4 pg (27.0-32.0); MEAN CORPUSCULAR HGB CONC 34.7 g/dL (31.0-37.0); MEAN CORPUSCULAR VOLUME 90.4 fL (80.0-98.0); MONOCYTES ABSOLUTE AUTO 0.6 K/uL (0.0-0.8); MONOCYTES PERCENT AUTO 9.4 % (0.0-15.0); NEUTROPHILS ABSOLUTE AUTO 3.1 K/uL (1.4-5.7); NEUTROPHILS PERCENT AUTO 49.8 % (48.0-80.0); NRBC ABSOLUTE 0 K/uL; PLATELET COUNT,PLT 240 K/uL (150-400); RED BLOOD CELL COUNT 4.05 M/uL (4.30-5.90); WHITE BLOOD CELL COUNT,WBC 6.16 K/uL (4.0-11.0)
[2023-01-01 00:13] LABS: BILIRUBIN,URINE NEGATIVE (NEGATIVE); COLOR,URINE YELLOW; GLUCOSE,URINE NEGATIVE (NEGATIVE); KETONES,URINE NEGATIVE (NEGATIVE); LEUKOCYTE ESTERASE,URINE NEGATIVE (NEGATIVE); NITRITE,URINE NEGATIVE (NEGATIVE); OCCULT BLOOD,URINE LARGE (NEGATIVE); PROTEIN,URINE NEGATIVE (NEGATIVE); UROBILINOGEN,URINE 0.2 EU/dL (<2.0)
[2023-01-01 00:15] LABS: APPEARANCE,URINE HAZY
[2023-01-01 00:27] LABS: BACTERIA,URINE RARE (NEGATIVE); EPITHELIAL CELLS,URINE OCCASIONAL (NONE-FEW); RBC,URINE TOO NUMEROUS TO CT (0-2/HPF); WBC,URINE 0-1 (0-5/HPF)
[2023-01-01 00:36] LABS: A/G RATIO 0.9 (0.9-1.6); ALBUMIN 3.6 g/dL (3.4-5.0); BILIRUBIN TOTAL 0.3 mg/dL (0.2-1.0); CALCIUM 9.2 mg/dL (8.5-10.1); CARBON DIOXIDE,CO2 25.9 mmol/L (21.0-32.0); CREATININE 1.1 mg/dL (0.6-1.0); EST CRCL DRUG DOSING (CG) 57.46 mL/min; POTASSIUM,K 3.4 mmol/L (3.5-5.1); PROTEIN TOTAL,TP 7.4 g/dL (6.4-8.2)
== END 2023-01-01 01:52 | disposition home or self-care (01) ==
LOC: MW.ED 23:42
DX: O20.0 Threatened abortion (principal); Z88.0 Allergy status to penicillin; Z3A.01 Less than 8 weeks gestation of pregnancy
CPT/HCPCS: 36415; 76817; 80053; 81001; 84702; 85025; 86900; 86901; 99284; J3490; J7030; 99283

== ENCOUNTER 2023-09-03 16:52 | Emergency (ER) | payer BC ==
[2023-09-03] MEDS: Sodium Chloride 0.9% 1,000 ML IV ONE (18:01)
[2023-09-03 18:02] LABS: BASOPHILS ABSOLUTE AUTO 0.05 K/uL (0.00-0.20); BASOPHILS PERCENT AUTO 0.7 % (0.0-1.0); EOSINOPHILS ABSOLUTE AUTO 0.41 K/uL (0.00-0.45); EOSINOPHILS PERCENT AUTO 5.8 % (0.0-6.0); HEMATOCRIT 40.3 % (37.0-47.0); HEMOGLOBIN 14.3 g/dL (12.0-16.0); IMMATURE GRAN ABSOLUTE AUTO 0.01 K/uL (0.00-0.05); IMMATURE GRAN PERCENT AUTO 0.1 % (0.0-0.4); LYMPHOCYTES ABSOLUTE AUTO 2.08 K/uL (1.00-4.80); LYMPHOCYTES PERCENT AUTO 29.4 % (24.0-44.0); MEAN CORPUSCULAR HEMOGLOBIN 33.2 pg (28.0-32.0); MEAN CORPUSCULAR HGB CONC 35.5 g/dL (32.0-36.0); MEAN CORPUSCULAR VOLUME 93.5 fL (83.0-99.0); MEAN PLATELET VOLUME 10.4 fL (9.4-12.3); MONOCYTES ABSOLUTE AUTO 0.69 K/uL (0.00-0.80); MONOCYTES PERCENT AUTO 9.7 % (0.0-8.0); NEUTROPHILS ABSOLUTE AUTO 3.84 K/uL (1.80-7.70); NEUTROPHILS PERCENT AUTO 54.3 % (41.0-71.0); PLATELET COUNT,PLT 201 K/uL (150-400); RED BLOOD CELL COUNT 4.31 M/uL (4.10-5.30); WHITE BLOOD CELL COUNT,WBC 7.08 K/uL (3.9-11.3)
[2023-09-03] MEDS: Sodium Chloride 0.9% 10 ML Syringe FLUSH PRN (18:04)
[2023-09-03] MEDS: Sodium Chloride 0.9% 2.5 ML Syringe FLUSH PRN (18:04)
[2023-09-03 18:10] LABS: APPEARANCE,URINE CLEAR; BILIRUBIN,URINE NEGATIVE (NEGATIVE); COLOR,URINE YELLOW; GLUCOSE,URINE NEGATIVE (NEGATIVE); KETONES,URINE NEGATIVE (NEGATIVE); LEUKOCYTE ESTERASE,URINE NEGATIVE (NEGATIVE); NITRITE,URINE NEGATIVE (NEGATIVE); OCCULT BLOOD,URINE NEGATIVE (NEGATIVE); PROTEIN,URINE NEGATIVE (NEGATIVE); UROBILINOGEN,URINE 0.2 EU/dL (<2.0)
[2023-09-03 18:19] LABS: AMPHETAMINES SCREEN, URINE NEGATIVE (CUTOFF=500); BARBITURATE SCREEN,URINE NEGATIVE (CUTOFF=200); BENZODIAZEPINES SCREEN,URINE NEGATIVE (CUTOFF=150); BUPRENORPHINE SCREEN,URINE NEGATIVE (CUTOFF=10); METHADONE SCREEN, URINE NEGATIVE (CUTOFF=200); METHAMPHETAMINES SCREEN, URINE NEGATIVE (CUTOFF=500); OXYCODONE SCREEN,URINE NEGATIVE (CUT0FF=100); PCP SCREEN,URINE NEGATIVE (CUTOFF=25); THC SCREEN,URINE 20 NG/ML NEGATIVE (CUTOFF=50)
[2023-09-03 18:38] LABS: A/G RATIO 0.9 (0.9-1.6); ALANINE AMINOTRANSFERASE,ALT 25 IU/L (14-63); ALBUMIN 3.5 g/dL (3.4-5.0); ALKALINE PHOSPHATASE 89 U/L (46-116); ASPARTATE AMNIOTRANSFERASE,AST 19 IU/L (15-37); BILIRUBIN TOTAL 0.6 mg/dL (0.2-1.0); BLOOD UREA NITROGEN,BUN 10 mg/dL (7.0-18.0); CALCIUM 9.8 mg/dL (8.5-10.1); CARBON DIOXIDE,CO2 27.1 mmol/L (21.0-32.0); CHLORIDE,CL 107 mmol/L (98-107); ESTIMATED GFR 79 mL/min (>60); ETHANOL BLOOD MEDICAL <3 mg/dL; GLUCOSE RANDOM 93 mg/dL (74-106); LIPASE 32 U/L (16-77); PROTEIN TOTAL,TP 7.2 g/dL (6.4-8.2); SODIUM,NA 144 mmol/L (136-145)
== END 2023-09-03 18:53 | disposition home or self-care (01) ==
LOC: MW.ED 16:52
DX: R53.1 Weakness (principal); Z79.899 Other long term (current) drug therapy; Z88.0 Allergy status to penicillin; Z75.8 Other problems related to medical facilities and other health care
CPT/HCPCS: 36415; 80053; 80305; 80307; 81003; 83690; 83735; 84443; 84484; 84703; 85025; 85379; 96361; 96374; 99284; J3360; J3490; J7030

== ENCOUNTER 2023-10-31 23:42 | Emergency (ER) | payer BC ==
[2023-11-01 00:24] LABS: BASOPHILS ABSOLUTE AUTO 0.08 K/uL (0.00-0.20); BASOPHILS PERCENT AUTO 0.8 % (0.0-1.0); EOSINOPHILS ABSOLUTE AUTO 0.77 K/uL (0.00-0.45); EOSINOPHILS PERCENT AUTO 7.8 % (0.0-6.0); HEMATOCRIT 43.5 % (37.0-47.0); HEMOGLOBIN 15.6 g/dL (12.0-16.0); IMMATURE GRAN ABSOLUTE AUTO 0.04 K/uL (0.00-0.05); IMMATURE GRAN PERCENT AUTO 0.4 % (0.0-0.4); LYMPHOCYTES ABSOLUTE AUTO 3.42 K/uL (1.00-4.80); LYMPHOCYTES PERCENT AUTO 34.8 % (24.0-44.0); MEAN CORPUSCULAR HEMOGLOBIN 32.9 pg (28.0-32.0); MEAN CORPUSCULAR HGB CONC 35.9 g/dL (32.0-36.0); MEAN CORPUSCULAR VOLUME 91.8 fL (83.0-99.0); MEAN PLATELET VOLUME 10.5 fL (9.4-12.3); MONOCYTES ABSOLUTE AUTO 0.45 K/uL (0.00-0.80); MONOCYTES PERCENT AUTO 4.6 % (0.0-8.0); NEUTROPHILS ABSOLUTE AUTO 5.07 K/uL (1.80-7.70); NEUTROPHILS PERCENT AUTO 51.6 % (41.0-71.0); PLATELET COUNT,PLT 268 K/uL (150-400); RED BLOOD CELL COUNT 4.74 M/uL (4.10-5.30); WHITE BLOOD CELL COUNT,WBC 9.83 K/uL (3.9-11.3)
[2023-11-01 00:25] LABS: APPEARANCE,URINE CLEAR; BILIRUBIN,URINE NEGATIVE (NEGATIVE); COLOR,URINE YELLOW; GLUCOSE,URINE NEGATIVE (NEGATIVE); KETONES,URINE NEGATIVE (NEGATIVE); LEUKOCYTE ESTERASE,URINE NEGATIVE (NEGATIVE); NITRITE,URINE NEGATIVE (NEGATIVE); OCCULT BLOOD,URINE TRACE-INTACT (NEGATIVE); PH,URINE 6.5 (5.0-8.0); PROTEIN,URINE NEGATIVE (NEGATIVE); UROBILINOGEN,URINE 0.2 EU/dL (<2.0)
[2023-11-01 00:29] LABS: BACTERIA,URINE FEW (NEGATIVE); EPITHELIAL CELLS,URINE FEW (NONE-FEW); MUCUS,URINE LIGHT (NONE-MOD); RBC,URINE 0-1 (0-2/HPF); WBC,URINE 0-1 (0-5/HPF)
[2023-11-01 00:33] LABS: AMPHETAMINES SCREEN, URINE NEGATIVE (CUTOFF=500); BARBITURATE SCREEN,URINE NEGATIVE (CUTOFF=200); BENZODIAZEPINES SCREEN,URINE NEGATIVE (CUTOFF=150); BUPRENORPHINE SCREEN,URINE NEGATIVE (CUTOFF=10); METHADONE SCREEN, URINE NEGATIVE (CUTOFF=200); METHAMPHETAMINES SCREEN, URINE NEGATIVE (CUTOFF=500); OXYCODONE SCREEN,URINE NEGATIVE (CUT0FF=100); PCP SCREEN,URINE NEGATIVE (CUTOFF=25); THC SCREEN,URINE 20 NG/ML NEGATIVE (CUTOFF=50)
[2023-11-01] MEDS: Acetaminophen 500 MG Tab PO ONE (00:34)
[2023-11-01 00:56] LABS: ACETAMINOPHEN <2.0 ug/mL; ALANINE AMINOTRANSFERASE,ALT 25 IU/L (14-63); ALBUMIN 4.1 g/dL (3.4-5.0); ALKALINE PHOSPHATASE 90 U/L (46-116); ASPARTATE AMNIOTRANSFERASE,AST 11 IU/L (15-37); BILIRUBIN TOTAL 0.6 mg/dL (0.2-1.0); BLOOD UREA NITROGEN,BUN 7 mg/dL (7.0-18.0); CALCIUM 9.1 mg/dL (8.5-10.1); CARBON DIOXIDE,CO2 23.9 mmol/L (21.0-32.0); CHLORIDE,CL 106 mmol/L (98-107); ESTIMATED GFR 79 mL/min (>60); ETHANOL BLOOD MEDICAL 141 mg/dL; GLUCOSE RANDOM 115 mg/dL (74-106); MAGNESIUM 2.1 mg/dL (1.8-2.4); POTASSIUM,K 3.6 mmol/L (3.5-5.1); PROTEIN TOTAL,TP 8.1 g/dL (6.4-8.2); SALICYLATE 0.3 mg/dL (0.0-20.0); SODIUM,NA 141 mmol/L (136-145); TSH ULTRASENSITIVE 2.76 uIU/mL (0.36-3.74)
[2023-11-01] MEDS: Ibuprofen 600 MG Tab PO ONE (04:25)
[2023-11-01] MEDS: Acetaminophen 325 MG Tab PO ONE (11:29)
== END 2023-11-01 12:08 ==
LOC: MW.ED 23:42
DX: F32.A Depression, unspecified (principal); Z88.0 Allergy status to penicillin; Z79.899 Other long term (current) drug therapy; Z75.8 Other problems related to medical facilities and other health care
CPT/HCPCS: 36415; 80053; 80143; 80179; 80305; 80307; 81001; 83735; 84443; 84703; 85025; 87635; 99285; A9270; 99284; U0002

== ENCOUNTER 2024-08-26 08:59 | Emergency (ER) | payer BC ==
[2024-08-26] MEDS: Ondansetron 4 MG/2 ML SDV IVPUSH ONE (09:16)
[2024-08-26] MEDS: Sodium Chloride 0.9% 1,000 ML IV ONE (09:16)
[2024-08-26 09:21] LABS: BASOPHILS ABSOLUTE AUTO 0.05 K/uL (0.00-0.20); BASOPHILS PERCENT AUTO 0.7 % (0.0-1.0); EOSINOPHILS ABSOLUTE AUTO 0.82 K/uL (0.00-0.45); EOSINOPHILS PERCENT AUTO 12.1 % (0.0-6.0); HEMATOCRIT 40.6 % (37.0-47.0); HEMOGLOBIN 14.2 g/dL (12.0-16.0); IMMATURE GRAN ABSOLUTE AUTO 0.01 K/uL (0.00-0.05); IMMATURE GRAN PERCENT AUTO 0.1 % (0.0-0.4); LYMPHOCYTES ABSOLUTE AUTO 2.05 K/uL (1.00-4.80); LYMPHOCYTES PERCENT AUTO 30.3 % (24.0-44.0); MEAN CORPUSCULAR HEMOGLOBIN 32.1 pg (28.0-32.0); MEAN CORPUSCULAR VOLUME 91.9 fL (83.0-99.0); MEAN PLATELET VOLUME 10.6 fL (9.4-12.3); MONOCYTES ABSOLUTE AUTO 0.54 K/uL (0.00-0.80); NEUTROPHILS PERCENT AUTO 48.8 % (41.0-71.0); PLATELET COUNT,PLT 184 K/uL (150-400); RED BLOOD CELL COUNT 4.42 M/uL (4.10-5.30); WHITE BLOOD CELL COUNT,WBC 6.77 K/uL (3.9-11.3)
[2024-08-26 09:33] LABS: APPEARANCE,URINE CLEAR; BILIRUBIN,URINE NEGATIVE (NEGATIVE); GLUCOSE,URINE NEGATIVE (NEGATIVE); KETONES,URINE NEGATIVE (NEGATIVE); LEUKOCYTE ESTERASE,URINE NEGATIVE (NEGATIVE); NITRITE,URINE NEGATIVE (NEGATIVE); OCCULT BLOOD,URINE SMALL (NEGATIVE); PROTEIN,URINE NEGATIVE (NEGATIVE); UROBILINOGEN,URINE 0.2 EU/dL (<2.0)
[2024-08-26 09:36] LABS: COLOR,URINE STRAW
[2024-08-26 09:49] LABS: AMPHETAMINES SCREEN, URINE PRESUMPTIVE POSITIVE (CUTOFF=500); BACTERIA,URINE RARE (NEGATIVE); BARBITURATE SCREEN,URINE NEGATIVE (CUTOFF=200); BENZODIAZEPINES SCREEN,URINE NEGATIVE (CUTOFF=150); BUPRENORPHINE SCREEN,URINE NEGATIVE (CUTOFF=10); EPITHELIAL CELLS,URINE FEW (NONE-FEW); METHADONE SCREEN, URINE NEGATIVE (CUTOFF=200); METHAMPHETAMINES SCREEN, URINE NEGATIVE (CUTOFF=500); OXYCODONE SCREEN,URINE NEGATIVE (CUT0FF=100); PCP SCREEN,URINE NEGATIVE (CUTOFF=25); RBC,URINE 0-1 (0-2/HPF); THC SCREEN,URINE 20 NG/ML NEGATIVE (CUTOFF=50); WBC,URINE 0-1 (0-5/HPF)
[2024-08-26] MEDS: hydrOXYzine HCl 25 MG Tab PO ONE (09:52)
[2024-08-26 10:00] LABS: A/G RATIO 1.2 (0.9-1.6); ALANINE AMINOTRANSFERASE,ALT 19 IU/L (14-63); ALBUMIN 4.2 g/dL (3.4-5.0); ALKALINE PHOSPHATASE 81 U/L (46-116); ASPARTATE AMNIOTRANSFERASE,AST 12 IU/L (15-37); BILIRUBIN TOTAL 0.8 mg/dL (0.2-1.0); BLOOD UREA NITROGEN,BUN 10 mg/dL (7.0-18.0); CALCIUM 9.2 mg/dL (8.5-10.1); CARBON DIOXIDE,CO2 25.5 mmol/L (21.0-32.0); CHLORIDE,CL 102 mmol/L (98-107); CREATININE 1.2 mg/dL (0.6-1.0); GLUCOSE RANDOM 119 mg/dL (74-106); LIPASE 34 U/L (16-77); POTASSIUM,K 3.9 mmol/L (3.5-5.1); PRO B-TYPE NATRIUR PEPT,BNPPRO 57 pg/mL (0-125); PROTEIN TOTAL,TP 7.8 g/dL (6.4-8.2); SODIUM,NA 136 mmol/L (136-145); TSH ULTRASENSITIVE 3.22 uIU/mL (0.36-3.74)
[2024-08-26 10:09] LABS: ESTIMATED GFR 63 mL/min (>60)
[2024-08-26] MEDS: LORazepam 0.5 MG Tab PO ONE (10:36)
== END 2024-08-26 10:39 | disposition home or self-care (01) ==
LOC: MW.ED 08:59
DX: R00.2 Palpitations (principal); R20.2 Paresthesia of skin; R03.0 Elevated blood-pressure reading, without diagnosis of hypertension; R74.9 Abnormal serum enzyme level, unspecified; E03.9 Hypothyroidism, unspecified; F17.290 Nicotine dependence, other tobacco product, uncomplicated; Z88.0 Allergy status to penicillin; Z79.899 Other long term (current) drug therapy; Z86.59 Personal history of other mental and behavioral disorders
CPT/HCPCS: 36415; 80053; 80305; 81001; 83690; 83735; 83880; 84443; 84484; 84703; 85025; 93005; 96361; 96374; 99285; A9270; J2405; J7030; 93010; 99284

== ENCOUNTER 2025-03-09 09:01 | Emergency (ER) | payer BC ==
[2025-03-09] MEDS: Ketorolac 30 MG/ML SDV IVPUSH ONE (10:25)
[2025-03-09] MEDS: Orphenadrine 60 MG/2 ML Inj IV ONE (10:25)
[2025-03-09 10:27] LABS: BASOPHILS ABSOLUTE AUTO 0.07 K/uL (0.00-0.20); BASOPHILS PERCENT AUTO 1.3 % (0.0-1.0); EOSINOPHILS ABSOLUTE AUTO 0.65 K/uL (0.00-0.45); EOSINOPHILS PERCENT AUTO 11.8 % (0.0-6.0); IMMATURE GRAN ABSOLUTE AUTO 0.01 K/uL (0.00-0.05); IMMATURE GRAN PERCENT AUTO 0.2 % (0.0-0.4); LYMPHOCYTES ABSOLUTE AUTO 1.48 K/uL (1.00-4.80); LYMPHOCYTES PERCENT AUTO 26.8 % (24.0-44.0); MEAN PLATELET VOLUME 10.6 fL (9.4-12.3); MONOCYTES ABSOLUTE AUTO 0.34 K/uL (0.00-0.80); MONOCYTES PERCENT AUTO 6.1 % (0.0-8.0); NEUTROPHILS ABSOLUTE AUTO 2.98 K/uL (1.80-7.70); NEUTROPHILS PERCENT AUTO 53.8 % (41.0-71.0); NRBC ABSOLUTE 0.00 K/uL (0.00-0.02); NRBC PERCENT 0.0 /100WBC (0.0-0.2); PLATELET COUNT,PLT 198 K/uL (150-400); RED BLOOD CELL COUNT 4.23 M/uL (4.10-5.30); WHITE BLOOD CELL COUNT,WBC 5.53 K/uL (3.9-11.3)
[2025-03-09 10:41] LABS: APPEARANCE,URINE CLEAR; GLUCOSE,URINE NEGATIVE (NEGATIVE); OCCULT BLOOD,URINE NEGATIVE (NEGATIVE)
[2025-03-09 10:51] LABS: A/G RATIO 1.1 (0.9-1.6); ALANINE AMINOTRANSFERASE,ALT 23.0 IU/L (14-63); ASPARTATE AMNIOTRANSFERASE,AST 15.0 IU/L (15-37); BILIRUBIN TOTAL 0.6 mg/dL (0.2-1.0); BLOOD UREA NITROGEN,BUN 10.0 mg/dL (7.0-18.0); CARBON DIOXIDE,CO2 29.3 mmol/L (21.0-32.0); CHLORIDE,CL 107.0 mmol/L (98-107); CREATININE 1.0 mg/dL (0.6-1.0); EST CRCL DRUG DOSING (CG) 62.07 mL/min; GLUCOSE RANDOM 69.0 mg/dL (74-106); POTASSIUM,K 3.7 mmol/L (3.5-5.1); PROTEIN TOTAL,TP 7.4 g/dL (6.4-8.2); SODIUM,NA 142.0 mmol/L (136-145)
[2025-03-09 10:52] LABS: ESTIMATED GFR 78.0 mL/min (>60)
[2025-03-09] MEDS: Ondansetron 4 MG/2 ML SDV IVPUSH ONE (11:30)
[2025-03-09] MEDS: Dexamethasone Sod Phos Preservative Free 10 MG/ML Vial IVPUSH ONE (11:30)
== END 2025-03-09 12:24 | disposition home or self-care (01) ==
LOC: MW.ED 09:01
DX: M54.41 Lumbago with sciatica, right side (principal); Z88.0 Allergy status to penicillin; E03.9 Hypothyroidism, unspecified; Z71.9 Counseling, unspecified
CPT/HCPCS: 36415; 80053; 81003; 83690; 83735; 85025; 96361; 96374; 96375; 99283; A9270; J1100; J1885; J2360; J2405; J7030